=== PATIENT | female | born 1980 | race Caucasian/White ===

== ENCOUNTER 2020-09-22 06:52 | Day surgery (SDC) | payer OTHER ==
[~2020-09-22] VITALS: Ht 167.6 cm; Wt 86.2 kg
[2020-09-22 06:44] VITALS: BP 153/91
[2020-09-22 12:44] VITALS: BP 135/80
== END 2020-09-22 12:35 ==
LOC: DS 06:52
PROVIDERS: ATTEND Internal Medicine Gastroenterology
DX: K51.90 Ulcerative colitis, unspecified, without complications (principal); K63.5 Polyp of colon; Z79.82 Long term (current) use of aspirin
CPT/HCPCS: 45380; J1200; J1610; J2250; J2310; J3010; J3490